=== PATIENT | female | born 1935 | race African-American/Black ===

== ENCOUNTER 2016-12-06 15:45 | Emergency (ER) | payer OTHER, MEDICAID ==
[~2016-12-06] VITALS: Ht 121.9 cm; Wt 45.0 kg
[~2016-12-06 15:45] MED LIST: CARB1TAB21 PO; DONE5TAB3 PO; LISI-186 PO; MEMA10TA11 PO; METO25TA6 PO; SIMV10TA6 PO; insulin
[2016-12-06 18:00] VITALS: BP 147/65
== END 2016-12-06 19:34 | disposition home or self-care (01) ==
LOC: ER 16:14
DX: K94.23 Gastrostomy malfunction (principal); F03.90 Unspecified dementia, unspecified severity, without behavioral disturbance, psychotic disturbance, mood disturbance, and anxiety; I10 Essential (primary) hypertension; Z79.4 Long term (current) use of insulin; Z79.899 Other long term (current) drug therapy; Z86.73 Personal history of transient ischemic attack (TIA), and cerebral infarction without residual deficits
CPT/HCPCS: 99283